=== PATIENT | male | born 1945 | race Caucasian/White ===

== ENCOUNTER 2018-07-31 09:18 | Inpatient (IN) ==
[~2018-07-31 09:18] MED LIST: GLYCOPYRROLATE 0.4 MG/2 ML VIAL ONE; LABETALOL 100 MG/20 ML VIAL IV ONE; LIDOCAINE 2% 5 ML VIAL ONE; NEOSTIGMINE 10 MG/10 ML VIAL ONE; ONDANSETRON 4 MG/2 ML VIAL ONE; PHENYLEPHRINE 1 MG/10 ML SYRINGE IV ONE; PROPOFOL 200 MG/20 ML VIAL IV ONE; ROCURONIUM 100 MG/10 ML VIAL IV ONE
[2018-07-31 10:49] LABS: Basophils % 0.2 % (0.0-0.8); Eosinophils # 0.1 10*3/uL (0.0-0.87); Eosinophils % 0.6 % (0.00-10.9); Hematocrit 42.7 VOL% (42.0-52.0); Hemoglobin 14.1 GM/DL (14.0-18.0); Immature Granulocytes % 0.3 %; Immature Granulocytes Absolute 0.03 #; Lymphocytes # 1.6 10*3/uL (1.4-4.0); Lymphocytes % 18.1 % (21.2-54.2); Mean Corpuscular Volume 95.5 FL (87-102); Mean Platelet Volume 11.2 FL (9.6-12.0); Monocytes % 11.6 % (1.7-12.7); Neutrophils % 69.2 % (38.7-73.9); Platelet Count 223 T/CUMM (130-400); Red Blood Count 4.47 MC/CUMM (3.8-5.5); Red Cell Distribution Width 12.9 % (9.3-17.3); White Blood Count 8.7 T/CUMM (4-12)
[2018-07-31 11:14] LABS: Albumin 3.7 G/DL (3.4-5.0); Bilirubin,Total 2.3 MG/DL (0.2-1.0); Calcium 9.6 MG/DL (8.5-10.1); Osmolality,Calculated 281.5 MOS/KG (273-304); Total Protein 7.8 G/DL (6.4-8.3)
[2018-07-31 11:26] LABS: Apearance,Urine CLEAR (Clear); Bilirubin,Urine Negative (Negative); Blood, Urine Negative (Negative); Glucose,Urine (UA) Negative (Negative); Ketones,Urine Negative (Negative); Mucus,Urine Many /LPF (Occasional); Nitrite,Urine Negative (Negative); Protein,Urine Negative; RBC,Urine 4 /HPF (0-4); Squamous Epithelial Cell,Urine Occasional /HPF (0-10); Urine Color Amber (Yellow); Urine Specific Gravity 1.025 (1.001-1.035)
[2018-07-31] MEDS ORDERED: ONDANSETRON 4 MG/2 ML VIAL IV PRN (15:42)
[2018-07-31] MEDS ORDERED: ACETAMINOPHEN 325 MG TABLET PO PRN (15:42)
[2018-07-31] MEDS: LACTATED RINGERS 1,000 ML IV SCH (16:31)
[2018-07-31] MEDS: PIPERACILLIN/TAZOBACTAM 3,375 MG in SODIUM CHLORIDE 0.9% 100 ML IV SCH (16:32)
[2018-08-01] MEDS: PIPERACILLIN/TAZOBACTAM 3,375 MG in SODIUM CHLORIDE 0.9% 100 ML IV SCH ×4 (00:05→23:58)
[2018-08-01] MEDS: LACTATED RINGERS 1,000 ML IV SCH ×3 (04:06→21:01)
[2018-08-01 06:51] LABS: Basophils % 0.6 % (0.0-0.8); Eosinophils # 0.2 10*3/uL (0.0-0.87); Eosinophils % 3.2 % (0.00-10.9); Hematocrit 41.3 VOL% (42.0-52.0); Hemoglobin 13.9 GM/DL (14.0-18.0); Immature Granulocytes % 0.3 %; Immature Granulocytes Absolute 0.02 #; Lymphocytes # 1.9 10*3/uL (1.4-4.0); Lymphocytes % 27.8 % (21.2-54.2); Mean Corpuscular HGB Conc 33.7 GM/DL (32-36); Mean Corpuscular Volume 94.1 FL (87-102); Mean Platelet Volume 11.3 FL (9.6-12.0); Monocytes % 12.5 % (1.7-12.7); Neutrophils % 55.6 % (38.7-73.9); Platelet Count 207 T/CUMM (130-400); Red Blood Count 4.39 MC/CUMM (3.8-5.5); Red Cell Distribution Width 12.9 % (9.3-17.3)
[2018-08-01 07:25] LABS: Albumin 3.4 G/DL (3.4-5.0); Albumin 3.6 G/DL (3.4-5.0); Bilirubin,Direct 1.38 MG/DL (0.0-0.20); Bilirubin,Indirect 1.8 MG/DL (0.0-1.0); Bilirubin,Total 3.2 MG/DL (0.2-1.0); Osmolality,Calculated 281.3 MOS/KG (273-304); Total Protein 7.4 G/DL (6.4-8.3); Total Protein 7.6 G/DL (6.4-8.3)
[2018-08-01] MEDS: PANTOPRAZOLE 40 MG TABLET PO SCH (08:31)
[2018-08-01] MEDS: HYDROmorphone 2 MG/1 ML VIAL IV PRN ×2 (09:16→21:55)
[2018-08-02 05:24] LABS: Albumin 2.9 G/DL (3.4-5.0); Bilirubin,Total 1.6 MG/DL (0.2-1.0); Calcium 8.6 MG/DL (8.5-10.1); Osmolality,Calculated 282.1 MOS/KG (273-304); Total Protein 6.4 G/DL (6.4-8.3)
[2018-08-02] MEDS: LACTATED RINGERS 1,000 ML IV SCH ×2 (08:46→08:47)
[2018-08-02] MEDS: PANTOPRAZOLE 40 MG TABLET PO SCH (09:20)
[2018-08-02] MEDS: PIPERACILLIN/TAZOBACTAM 3,375 MG in SODIUM CHLORIDE 0.9% 100 ML IV SCH ×3 (09:21→23:12)
[2018-08-02] MEDS: hydroCHLOROthiazide 12.5 MG CAPSULE PO SCH (16:27)
[2018-08-02] MEDS: LISINOPRIL 20 MG TABLET PO SCH (16:27)
[2018-08-02] MEDS: ALLOPURINOL 300 MG TABLET PO SCH (16:28)
[2018-08-02] MEDS: HYDROmorphone 2 MG/1 ML VIAL IV PRN (21:43)
[2018-08-02] MEDS: SIMVASTATIN 20 MG TABLET PO SCH (21:44)
[2018-08-03] MEDS: HYDROmorphone 2 MG/1 ML VIAL IV PRN ×2 (02:27→09:20)
[2018-08-03] MEDS: LACTATED RINGERS 1,000 ML IV SCH ×3 (04:30→22:39)
[2018-08-03] MEDS: PIPERACILLIN/TAZOBACTAM 3,375 MG in SODIUM CHLORIDE 0.9% 100 ML IV SCH ×2 (09:07→22:40)
[2018-08-03] MEDS ORDERED: INDOMETHACIN SUPP 50 MG SUPP RECTAL ONE (12:01)
[2018-08-03] MEDS ORDERED: fentaNYL 100 MCG/2 ML VIAL ONE (12:50)
[2018-08-03] MEDS ORDERED: hydrALAZINE 20 MG/1 ML VIAL IV ONE (14:06)
[2018-08-03] MEDS: LISINOPRIL 20 MG TABLET PO SCH (16:43)
[2018-08-03] MEDS: PANTOPRAZOLE 40 MG TABLET PO SCH (16:43)
[2018-08-03] MEDS: MULTIVITAMIN (CENTRUM) TABLET PO SCH (16:43)
[2018-08-03] MEDS: ALLOPURINOL 300 MG TABLET PO SCH (16:43)
[2018-08-03] MEDS: hydroCHLOROthiazide 12.5 MG CAPSULE PO SCH (16:43)
[2018-08-03] MEDS: ASPIRIN EC 81 MG TABLET PO SCH (16:44)
[2018-08-03] MEDS: SIMVASTATIN 20 MG TABLET PO SCH (21:03)
[2018-08-04] MEDS: LACTATED RINGERS 1,000 ML IV SCH ×3 (01:37→21:41)
[2018-08-04 05:31] LABS: Basophils % 0.5 % (0.0-0.8); Eosinophils # 0.3 10*3/uL (0.0-0.87); Hemoglobin 11.8 GM/DL (14.0-18.0); Immature Granulocytes % 0.2 %; Immature Granulocytes Absolute 0.02 #; Lymphocytes # 1.9 10*3/uL (1.4-4.0); Lymphocytes % 22.5 % (21.2-54.2); Mean Corpuscular HGB Conc 32.8 GM/DL (32-36); Mean Corpuscular Volume 95.7 FL (87-102); Mean Platelet Volume 10.9 FL (9.6-12.0); Neutrophils % 58.8 % (38.7-73.9); Platelet Count 208 T/CUMM (130-400); Red Blood Count 3.76 MC/CUMM (3.8-5.5); Red Cell Distribution Width 12.6 % (9.3-17.3); White Blood Count 8.3 T/CUMM (4-12)
[2018-08-04 06:02] LABS: Albumin 2.9 G/DL (3.4-5.0); Bilirubin,Total 1.8 MG/DL (0.2-1.0); Calcium 8.8 MG/DL (8.5-10.1); Osmolality,Calculated 276.5 MOS/KG (273-304); Total Protein 6.6 G/DL (6.4-8.3)
[2018-08-04] MEDS: PIPERACILLIN/TAZOBACTAM 3,375 MG in SODIUM CHLORIDE 0.9% 100 ML IV SCH ×2 (06:07→14:55)
[2018-08-04] MEDS ORDERED: BUPIVACAINE 0.5% 50 ML VIAL ONE (06:28)
[2018-08-04] MEDS ORDERED: TISSUE ADHESIVE 1 EACH APPLICATOR TOP ONE (08:10)
[2018-08-04] MEDS ORDERED: ePHEDrine 50 MG/ML AMP ONE (08:28)
[2018-08-04] MEDS ORDERED: ONDANSETRON 4 MG/2 ML VIAL ONE (08:28)
[2018-08-04] MEDS ORDERED: KETOROLAC 30 MG/1 ML VIAL ONE (08:28)
[2018-08-04] MEDS ORDERED: NEOSTIGMINE 10 MG/10 ML VIAL ONE (08:28)
[2018-08-04] MEDS ORDERED: LACTATED RINGERS 1,000 ML IV ONE (08:28)
[2018-08-04] MEDS ORDERED: PROPOFOL 200 MG/20 ML VIAL IV ONE (08:28)
[2018-08-04] MEDS ORDERED: ROCURONIUM 100 MG/10 ML VIAL IV ONE (08:28)
[2018-08-04] MEDS ORDERED: GLYCOPYRROLATE 0.4 MG/2 ML VIAL ONE (08:28)
[2018-08-04] MEDS ORDERED: fentaNYL 100 MCG/2 ML VIAL ONE (08:28)
[2018-08-04] MEDS ORDERED: DESFLURANE 1 UNIT/15 MINUTE INH ONE (08:28)
[2018-08-04] MEDS: ALLOPURINOL 300 MG TABLET PO SCH (09:25)
[2018-08-04] MEDS: LISINOPRIL 20 MG TABLET PO SCH (09:25)
[2018-08-04] MEDS: hydroCHLOROthiazide 12.5 MG CAPSULE PO SCH ×2 (09:25→12:14)
[2018-08-04] MEDS: ASPIRIN EC 81 MG TABLET PO SCH (09:25)
[2018-08-04 09:33] LABS: HIV Antigen/Antibody Result Nonreactive (Nonreactive); Hepatitis B Surface Ag Quant < 0.10 Index; Hepatitis B Surface Ag Result Negative (Negative); Hepatitis C Virus Ab Quant 0.05 Index; Hepatitis C Virus Ab Result Negative (Negative)
[2018-08-04] MEDS: MULTIVITAMIN (CENTRUM) TABLET PO SCH (09:51)
[2018-08-04] MEDS: PANTOPRAZOLE 40 MG TABLET PO SCH (09:52)
[2018-08-04] MEDS ORDERED: POLYETHYLENE GLYCOL POWDER 17 GM PACK PO SCH (11:00)
[2018-08-04] MEDS: HYDROmorphone 2 MG/1 ML VIAL IV PRN (21:41)
[2018-08-04] MEDS: SIMVASTATIN 20 MG TABLET PO SCH (21:41)
[2018-08-05] MEDS: PIPERACILLIN/TAZOBACTAM 3,375 MG in SODIUM CHLORIDE 0.9% 100 ML IV SCH ×2 (00:06→07:36)
[2018-08-05] MEDS: LACTATED RINGERS 1,000 ML IV SCH ×2 (02:44→15:36)
[2018-08-05 05:42] LABS: Albumin 2.8 G/DL (3.4-5.0); Calcium 8.1 MG/DL (8.5-10.1); Osmolality,Calculated 272.8 MOS/KG (273-304); Total Protein 6.1 G/DL (6.4-8.3)
[2018-08-05] MEDS: PANTOPRAZOLE 40 MG TABLET PO SCH (09:05)
[2018-08-05] MEDS: ALLOPURINOL 300 MG TABLET PO SCH (09:05)
[2018-08-05] MEDS: LISINOPRIL 20 MG TABLET PO SCH (09:05)
[2018-08-05] MEDS: ASPIRIN EC 81 MG TABLET PO SCH (09:05)
[2018-08-05] MEDS: POLYETHYLENE GLYCOL POWDER 17 GM PACK PO SCH ×3 (09:05→21:20)
[2018-08-05] MEDS: MULTIVITAMIN (CENTRUM) TABLET PO SCH ×2 (09:05→09:06)
[2018-08-05] MEDS: TAMSULOSIN 0.4 MG CAPSULE PO SCH ×2 (09:43→21:20)
[2018-08-05 10:28] LABS: Apearance,Urine CLEAR (Clear); Bilirubin,Urine Negative (Negative); Blood, Urine Small mg/dL (Negative); Glucose,Urine (UA) Negative (Negative); Ketones,Urine 5 mg/dL (Negative); Mucus,Urine Occasional /LPF (Occasional); Nitrite,Urine Negative (Negative); Protein,Urine Negative; RBC,Urine 1 /HPF (0-4); Urine Color Yellow (Yellow); Urine Specific Gravity 1.021 (1.001-1.035); WBC,Urine 2 /HPF (0-6)
[2018-08-05] MEDS: hydroCHLOROthiazide 12.5 MG CAPSULE PO SCH (12:02)
[2018-08-05] MEDS ORDERED: FUROSEMIDE 40 MG/4 ML VIAL IV ONE (12:38)
[2018-08-05] MEDS: SIMVASTATIN 20 MG TABLET PO SCH (21:20)
[2018-08-06 08:04] VITALS: BP 142/61
[2018-08-06 08:23] LABS: Basophils % 0.4 % (0.0-0.8); Eosinophils # 0.3 10*3/uL (0.0-0.87); Eosinophils % 4.1 % (0.00-10.9); Hematocrit 27.8 VOL% (42.0-52.0); Immature Granulocytes % 0.4 %; Immature Granulocytes Absolute 0.03 #; Lymphocytes # 1.8 10*3/uL (1.4-4.0); Lymphocytes % 25.8 % (21.2-54.2); Mean Corpuscular HGB Conc 33.1 GM/DL (32-36); Mean Corpuscular Volume 96.2 FL (87-102); Mean Platelet Volume 10.8 FL (9.6-12.0); Monocytes % 12.8 % (1.7-12.7); Neutrophils % 56.5 % (38.7-73.9); Platelet Count 235 T/CUMM (130-400); Red Cell Distribution Width 12.5 % (9.3-17.3); White Blood Count 7.1 T/CUMM (4-12)
[2018-08-06 08:24] LABS: Hemoglobin 9.2 GM/DL (14.0-18.0); Red Blood Count 2.89 MC/CUMM (3.8-5.5)
[2018-08-06 08:34] LABS: Bilirubin,Direct 0.3 MG/DL (0.0-0.20); Bilirubin,Indirect 0.4 MG/DL (0.0-1.0); Bilirubin,Total 0.7 MG/DL (0.2-1.0); Total Protein 6.8 G/DL (6.4-8.3)
[2018-08-06] MEDS: ALLOPURINOL 300 MG TABLET PO SCH (08:56)
[2018-08-06] MEDS: PANTOPRAZOLE 40 MG TABLET PO SCH (08:56)
[2018-08-06] MEDS: LISINOPRIL 20 MG TABLET PO SCH (08:56)
[2018-08-06] MEDS: ASPIRIN EC 81 MG TABLET PO SCH (08:57)
[2018-08-06] MEDS: TAMSULOSIN 0.4 MG CAPSULE PO SCH (08:57)
[2018-08-06] MEDS: MULTIVITAMIN (CENTRUM) TABLET PO SCH ×2 (08:57→08:58)
[2018-08-06] MEDS: POLYETHYLENE GLYCOL POWDER 17 GM PACK PO SCH (08:58)
== END 2018-08-06 12:24 | disposition home or self-care (01) | DRG 418 ==
LOC: N.ED 09:18 → N.EDINP 13:03 → N.3E 15:16
PROVIDERS: ADMIT Surgery; ATTEND Surgery
PROC: ERCPWSP (ICD-10-PCS; 2018-08-03 09:35)
PROC: LAPCHOL (2018-08-04 09:50)